=== PATIENT | female | born 1980 | race Caucasian/White ===

== ENCOUNTER 2016-12-10 12:35 | Emergency (ER) | payer OTHER ==
[2016-12-10 14:16] VITALS: RESP 12; TEMP 97.2
[2016-12-10 14:58] VITALS: BP 116/58; PULSE 66; O2SAT 98
== END 2016-12-10 14:47 | disposition home or self-care (01) ==
LOC: ED 12:35
DX: L98.9 Disorder of the skin and subcutaneous tissue, unspecified (principal); B95.8 Unspecified staphylococcus as the cause of diseases classified elsewhere
CPT/HCPCS: 99282; 99283

== ENCOUNTER 2017-07-29 14:59 | Emergency (ER) | payer OTHER ==
[2017-07-29 15:49] VITALS: RESP 18
[2017-07-29 17:06] VITALS: O2SAT 99
[2017-07-29 17:07] VITALS: BP 91/58; PULSE 75; TEMP 98.6
== END 2017-07-29 17:04 | disposition home or self-care (01) ==
LOC: ED 14:59
DX: L03.115 Cellulitis of right lower limb (principal)
CPT/HCPCS: 99283

== ENCOUNTER 2017-11-23 19:40 | Emergency (ER) | payer OTHER ==
[2017-11-23 20:04] VITALS: RESP 20; TEMP 97.6
[2017-11-23] MEDS ORDERED: ONDANSETRON 4 MG ODT BU ONE (20:15)
[2017-11-23] MEDS ORDERED: ONDANSETRON 4 MG ODT ONE (20:28)
[2017-11-23 21:28] VITALS: BP 128/87; PULSE 66; O2SAT 97
== END 2017-11-23 21:24 | disposition home or self-care (01) ==
LOC: ED 19:40
DX: R11.2 Nausea with vomiting, unspecified (principal); K52.9 Noninfective gastroenteritis and colitis, unspecified
CPT/HCPCS: 87804; 99282; A9270-GY

== ENCOUNTER 2018-07-07 11:46 | Emergency (ER) | payer OTHER ==
[2018-07-07 12:01] VITALS: BP 129/86; PULSE 82; RESP 18; TEMP 97; O2SAT 100
== END 2018-07-07 12:42 | disposition home or self-care (01) ==
LOC: ED 11:46
DX: J44.9 Chronic obstructive pulmonary disease, unspecified (principal)
CPT/HCPCS: 99282; 99283

== ENCOUNTER 2018-09-01 19:24 | Emergency (ER) | payer OTHER ==
[2018-09-01 19:55] VITALS: RESP 18; TEMP 98.6; O2SAT 97
[2018-09-01] MEDS ORDERED: LIDOCAINE 2% W/ EPI MPF 20 ML SOL INFIL ONE (19:59)
[2018-09-01] MEDS ORDERED: BUPIVACAINE HCL 0.5% MPF 10 ML SOL INFIL ONE (19:59)
[2018-09-01] MEDS ORDERED: BENZOCAINE/MENTHOL 1 SPR TOP PRN (20:00)
[2018-09-01] MEDS ORDERED: AMOXIL/CLAVULANATE 400/5 ML PDR PO ONE (20:01)
[2018-09-01] MEDS ORDERED: LIDOCAINE 2% W/ EPI MPF 20 ML SOL ONE (20:07)
[2018-09-01] MEDS ORDERED: BUPIVACAINE HCL 0.5% MPF 10 ML SOL ONE (20:07)
[2018-09-01] MEDS ORDERED: AMOXIL/CLAVULANATE 400/5 ML PDR ONE (20:09)
[2018-09-01] MEDS ORDERED: CEFTRIAXONE 1 GM PDS ONE (20:24)
[2018-09-01] MEDS ORDERED: ACETAMINOPHEN 325 MG ONE (20:24)
[2018-09-01] MEDS ORDERED: WATER, STERILE 20 ML 20 ML ONE (20:24)
[2018-09-01 21:18] VITALS: BP 119/67; PULSE 80
== END 2018-09-01 21:13 | disposition home or self-care (01) ==
LOC: ED 19:24
DX: K05.6 Periodontal disease, unspecified (principal); F17.200 Nicotine dependence, unspecified, uncomplicated
CPT/HCPCS: 99282; J0696; A9270-GY